=== PATIENT | male | born 1970 | race Caucasian/White ===

== ENCOUNTER 2018-01-29 15:16 | Emergency (ER) | payer BC ==
[2018-01-29] MEDS ORDERED: Alum Hydrox/Mag Hydrox/Simeth 30 ML, Lidocaine 2% 15 ML PO ONE ×2 (15:49)
[2018-01-29] MEDS ORDERED: Aspirin 81 MG Tab.Chew PO ONE (15:49)
--- NOTE | 2018-01-29 15:55 | EDM.PDOC ---
ED HPI GENERAL MEDICAL PROBLEM - General Chief Complaint: Upper Extremity Injury/Pain Stated Complaint: NECK AND SHOULDER TIGHTNESS Time Seen by Provider: 01/29/18 15:40 Source of Information: Reports: Patient History Limitations: Reports: No Limitations - History of Present Illness INITIAL COMMENTS - FREE TEXT/NARRATIVE: Patient is a 47-year-old male who presents to the ED complaining of left anterior/lateral/posterior shoulder pain that radiates into his neck down his left arm. Patient also developed some chest discomfort noted to the lateral aspect of the left chest. Initially started with left shoulder pain for the past few days and then started radiating yesterday. Earlier today felt a little bit lightheaded. There's been no diaphoresis. He's been mildly nauseated at times. Denies any palpitations, acid reflux, worsening pain with exertion, back pain, sob, cough, fever, hemoptysis, abdominal pain, palpitations, or any additional complaints. Discomfort is rated 2 out of 10. There is no past medical history and currently taking no medications. Surgical history noncontributory. Dad was diagnosed with heart disease at age 71. Patient does not smoke. Alcohol use sparingly. Acid reflux some. Denies any recreational drug use. PCP is Dr. Pate. Left Shoulder Pain Score (Numeric/FACES): 4 - Related Data Allergies Allergy/AdvReac Type Severity Reaction Status Date / Time No Known Allergies Allergy Verified 01/29/18 15:26 Home Meds: Home Meds . [No Known Home Meds] 01/29/18 [History] Past Medical History - Past Surgical History HEENT Surgical History: Reports: Other (See Below) Other HEENT Surgeries/Procedures: right ear surgery Social & Family History - Tobacco Use Smoking Status *Q: Never Smoker - Caffeine Use Caffeine Use: Reports: Coffee - Recreational Drug Use Recreational Drug Use: No Review of Systems - Review of Systems Review Of Systems: ROS reveals no pertinent complaints other than HPI. ED EXAM, GENERAL - Physical Exam Exam: See Below Exam Limited By: No Limitations General Appearance: Alert, WD/WN, No Apparent Distress Eye Exam: Bilateral Eye: Normal Inspection, PERRL Ears: Hearing Grossly Normal Nose: Normal Inspection Throat/Mouth: Normal Inspection, Normal Oropharynx, Normal Voice, No Airway Compromise Head: Atraumatic, Normocephalic Neck: Normal Inspection, Supple, Non-Tender, Full Range of Motion. No: Lymphadenopathy (L), Lymphadenopathy (R) Respiratory/Chest: No Respiratory Distress, Lungs Clear, Normal Breath Sounds, No Accessory Muscle Use, Chest Non-Tender Cardiovascular: Normal Peripheral Pulses, Regular Rate, Rhythm, No Murmur Peripheral Pulses: 4+: Radial (R) GI/Abdominal: Normal Bowel Sounds, Soft, Non-Tender, No Organomegaly, No Distention Back Exam: Normal Inspection. No: Paraspinal Tenderness, Vertebral Tenderness Extremities: Normal Inspection, Normal Range of Motion, Non-Tender, No Pedal Edema, Normal Capillary Refill Neurological: Alert, Oriented, CN II-XII Intact, Normal Cognition, No Motor/ Sensory Deficits Psychiatric: Normal Affect, Normal Mood Skin Exam: Warm, Dry, Intact, Normal Color, No Rash Course - Vital Signs Last Recorded V/S: Last Vital Signs Temp 97.8 F 01/29/18 15:22 Pulse 67 01/29/18 17:45 Resp 18 01/29/18 17:45 BP 130/78 01/29/18 17:45 Pulse Ox 99 01/29/18 17:45 - Orders/Labs/Meds Labs: Laboratory Tests 01/29/18 01/29/18 01/29/18 Range/Units 16:00 16:00 16:00 WBC 9.42 H (4.23-9.07) K/mm3 RBC 5.31 (4.63-6.08) M/mm3 Hgb 16.2 (13.7-17.5) gm/L Hct 46.9 (40.1-51.0) % MCV 88.3 (79.0-92.2) fl MCH 30.5 (25.7-32.2) pg MCHC 34.5 (32.2-35.5) g/dl RDW Std Deviation 40.9 (35.1-43.9) fL Plt Count 199 (163-337) K/mm3 MPV 10.4 (9.4-12.3) fl Neutrophils % (Manual) 58 (40-60) % Band Neutrophils % 0 (0-10) % Lymphocytes % (Manual) 34 (20-40) % Atypical Lymphs % 0 % Monocytes % (Manual) 6 (2-10) % Eosinophils % (Manual) 1 (0.8-7.0) % Basophils % (Manual) 1 (0.2-1.2) Toxic Granulation See note Platelet Estimate Adequate Plt Morphology Comment Normal RBC Morph Comment Normal D-Dimer, Quantitative < 0.19 L (0.19-0.50) mg/L Sodium 141 (136-145) mEq/L Potassium 4.6 (3.5-5.1) mEq/L Chloride 103 (98-107) mEq/L Carbon Dioxide 30 (21-32) mEq/L Anion Gap 12.6 (5-15) BUN 18 (7-18) mg/dL Creatinine 1.2 (0.7-1.3) mg/dL Est Cr Clr Drug Dosing 84.43 mL/min Estimated GFR (MDRD) > 60 (>60) mL/min BUN/Creatinine Ratio 15.0 (14-18) Glucose 99 (74-106) mg/dL Calcium 9.5 (8.5-10.1) mg/dL Total Bilirubin 0.7 (0.2-1.0) mg/dL AST 18 (15-37) U/L ALT 29 (16-63) U/L Alkaline Phosphatase 54 (46-116) U/L Troponin I < 0.017 (0.00-0.056) ng/mL C-Reactive Protein < 0.2 (<1.0) mg/dL Total Protein 7.3 (6.4-8.2) g/dl Albumin 4.2 (3.4-5.0) g/dl Globulin 3.1 gm/dL Albumin/Globulin Ratio 1.4 (1-2) Meds: Medications Discontinued Medications Generic Name Dose Route Start Last Admin Trade Name Freq PRN Reason Stop Dose Admin Aspirin 324 mg 01/29/18 15:49 01/29/18 15:55 Aspirin PO 01/29/18 15:50 324 mg ONETIME ONE Administration Al Hydroxide/Mg Hydroxide 30 0 ml 01/29/18 15:49 01/29/18 15:56 ml/ Lidocaine HCl 15 ml PO 01/29/18 15:50 45 ml ONETIME ONE Administration - Re-Assessments/Exams Free Text/Narrative Re-Assessment/Exam: Will order aspirin 324 mg by mouth and also GI cocktail by mouth. Initial labs and studies will include CBC, chem 14, CRP, d-dimer, troponin, chest x-ray one view, and EKG. EKG: Sinus rhythm at a rate of [address] changes noted. CXR: reviewed with Dr. Pedraza. No acute findings noted. Final interpretation is pending. Labs reviewed: CBC essentially normal. D-dimer less than 0.19. Chemistry Panel essentially normal. Troponin less than 0.017. CRP less than 0.2. 1720 Reassessment, Patients discomfort has improved with the GI cocktail. Do suspect this discomfort is related to GI. Patient has history of acid reflux. Symptoms have been present for the past few days thus if related to heart you would suspect troponin would be positive. I do no think this is heart related at all. Further questioning patient admits the pain to the left shoulder has been going on and off for the past few years after receiving flu vaccination. Patient is ready to be discharged home. Departure - Departure Time of Disposition: 17:27 Disposition: Home, Self-Care 01 Condition: Good Clinical Impression: Neck pain on left side, Anterior chest wall pain, Dyspepsia Left shoulder pain Qualifiers: Chronicity: acute Qualified Code(s): M25.512 - Pain in left shoulder - Discharge Information Instructions: Nonspecific Chest Pain, Joint Pain, [id number] Referrals: Bhargav Pate Jr, MD [Primary Care Provider] - Forms: ED Department Discharge Additional Instructions: As discussed suspect cause of discomfort is actually related to acid reflux with relief after taking the GI cocktail. The phrenic nerve runs posteriorly along the chest cavity from the diaphragm to the left shoulder commonly causing discomfort when symptoms flare up. Will have you take Prilosec 40 mg every day for the next 2 weeks half-hour prior to eating. May utilize Maalox intermittent throughout the day for flareups. Take Zantac 150 milligrams at at bedtime as needed as well. Refrain from eating or drinking within 4 hours ago in the bed. Follow-up with her primary care provider this coming week for reevaluation. Refrain from any NSAID use, caffeinated beverages, spicy foods, chocolates, or any other foods that cause aggravation. Please return to the ED if you develop any new or worsening symptoms.
--- NOTE | 2018-01-30 08:23 | CR ---
Chest: Portable view of the chest was obtained. Comparison: No prior study. Heart size and mediastinum are normal. Lungs are clear. Bony structures are grossly intact. Impression: 1. Nothing acute is seen on portable chest x-ray. Diagnostic code #1
== END 2018-01-29 17:45 | disposition home or self-care (01) ==
LOC: JD.ED 15:16
DX: M25.512 Pain in left shoulder (principal); R07.89 Other chest pain; M54.2 Cervicalgia; R10.13 Epigastric pain
CPT/HCPCS: 36415; 71045; 80053; 84484; 85007; 85027; 85379; 86140; 93005; 99284; A9270; 93010; 99283-25

== ENCOUNTER 2022-01-07 09:32 | Day surgery (SDC) | payer BC ==
[~2022-01-07 09:32] MED LIST: Lactated Ringers 1,000 ML IV SCH; Lidocaine 1% 4 ML ONE; Lidocaine 1%/Sod Bicarbonate in NS 8.4% 1 ML Syringe IDERM PRN; Midazolam 1 MG/ML 2 ML SDV ONE; Propofol 200 MG/20 ML SDV ONE; Sodium Chloride 0.9% 10 ML Syringe FLUSH PRN; Sodium Chloride 0.9% 10 ML Syringe FLUSH SCH
[2022-01-07] MEDS ORDERED: Ondansetron 4 MG/2 ML SDV IVPUSH PRN (10:59)
== END 2022-01-07 11:40 | disposition home or self-care (01) ==
LOC: JD.SDS 09:32
PROVIDERS: ATTEND Surgery
DX: Z12.11 Encounter for screening for malignant neoplasm of colon (principal); Z98.890 Other specified postprocedural states
CPT/HCPCS: 45378; J2250; J2704; J7120

== ENCOUNTER 2023-07-29 05:48 | Emergency (ER) | payer BC ==
[2023-07-29 06:44] LABS: BASOPHILS ABSOLUTE AUTO 0.1 K/mm3 (0.0-0.2); BASOPHILS PERCENT AUTO 0.8 % (0.0-1.0); EOSINOPHILS ABSOLUTE AUTO 0.2 K/mm3 (0.0-0.4); EOSINOPHILS PERCENT AUTO 2.7 % (0.0-6.0); HEMATOCRIT 47.2 % (42.0-52.0); HEMOGLOBIN 16.5 gm/dl (14.0-18.0); IMMATURE GRAN ABSOLUTE AUTO 0.02 K/mm3 (0.00-0.05); IMMATURE GRAN PERCENT AUTO 0.3 % (0.0-0.4); LYMPHOCYTES ABSOLUTE AUTO 2.6 K/mm3 (1.0-4.8); LYMPHOCYTES PERCENT AUTO 35.6 % (24.0-44.0); MEAN CORPUSCULAR HEMOGLOBIN 31.9 pg (28.0-32.0); MEAN CORPUSCULAR VOLUME 91.3 fl (83.0-99.0); MEAN PLATELET VOLUME 10.6 fl (9.4-12.4); MONOCYTES ABSOLUTE AUTO 0.6 K/mm3 (0.0-0.8); MONOCYTES PERCENT AUTO 8.8 % (0.0-8.0); NEUTROPHILS ABSOLUTE AUTO 3.8 K/mm3 (1.8-7.7); NEUTROPHILS PERCENT AUTO 51.8 % (41.0-71.0); PLATELET COUNT,PLT 172 K/mm3 (150-400); RED BLOOD CELL COUNT 5.17 M/mm3 (4.52-5.90); WHITE BLOOD CELL COUNT,WBC 7.31 K/mm3 (3.9-11.3)
[2023-07-29 07:07] LABS: A/G RATIO 1.2 (1-2); ALBUMIN 3.9 g/dl (3.4-5.0); ANION GAP 12.2 (5-15); BILIRUBIN TOTAL 0.8 mg/dL (0.2-1.0); BUN/CREATININE RATIO 15.8 (14-18); CALCIUM 9.1 mg/dL (8.5-10.1); CREATININE 1.2 mg/dL (0.7-1.3); EST CRCL DRUG DOSING (CG) 79.04 mL/min; INR 0.99; POTASSIUM,K 4.2 mEq/L (3.5-5.1); PROTEIN TOTAL,TP 7.1 g/dl (6.4-8.2); PROTHROMBIN TIME 10.6 SECONDS (9.7-12.0)
[2023-07-29 07:08] LABS: PTT,PARTIAL THROMBOPLSTIN TIME 22.5 SECONDS (21.7-31.4)
[2023-07-29] MEDS ORDERED: Orphenadrine 60 MG/2 ML Inj IV ONE (07:57)
[2023-07-29] MEDS ORDERED: Ketorolac 30 MG/ML SDV IVPUSH ONE (07:57)
[2023-07-29] MEDS ORDERED: Sodium Chloride 0.9% 10 ML Syringe FLUSH PRN (07:57)
== END 2023-07-29 09:44 | disposition home or self-care (01) ==
LOC: JD.ED 05:48
DX: S29.012A Strain of muscle and tendon of back wall of thorax, initial encounter (principal); M54.14 Radiculopathy, thoracic region; W18.30XA Fall on same level, unspecified, initial encounter
CPT/HCPCS: 36415; 71045; 80053; 83735; 84484; 85025; 85610; 85730; 93005; 96374; 96375; 99284; J1885; J2360; J3490; 93010